=== PATIENT | male | born 1995 | race African-American/Black ===

== ENCOUNTER 2021-09-22 17:35 | Emergency (ER) | payer MEDICAID, OTHER ==
[~2021-09-22] VITALS: Ht 170.2 cm; Wt 75.0 kg
[~2021-09-22 17:35] MED LIST: FLUT1DIS IH
[2021-09-22] MEDS ORDERED: TETANUS, DIPHTHERIA, PERTUSSIS VAC/PF 0.5ML (>10YR OLD) IM ONE (18:30)
[2021-09-22] MEDS ORDERED: AMOX1TAB16 MT (18:46)
[2021-09-22 19:18] VITALS: BP 111/78
== END 2021-09-22 19:18 ==
LOC: ER 17:35
DX: S61.411A Laceration without foreign body of right hand, initial encounter (principal); X58.XXXA Exposure to other specified factors, initial encounter; Y93.89 Activity, other specified; Y92.89 Other specified places as the place of occurrence of the external cause; Y99.8 Other external cause status; J45.909 Unspecified asthma, uncomplicated
CPT/HCPCS: 90471; 90715; 99283